=== PATIENT | female | born 1945 | race Caucasian/White ===

== ENCOUNTER 2017-07-02 11:27 | Observation (INO) ==
[2017-07-02] MEDS ORDERED: methylPREDNISolone 125 MG/2 ML VIAL IVP ONE (11:48)
[2017-07-02] MEDS ORDERED: Ipratropium/Albuterol Neb 3 ML IH ONE (11:48)
[2017-07-02] MEDS ORDERED: GuaiFENesin Liq 200 MG/10 ML UDC PO ONE (11:49)
--- NOTE | 2017-07-02 11:57 | Emergency Department Note ---
Disposition Clinical Impression: Bronchopneumonia Disposition: Admitted As Inpatient Condition: Fair SOB HPI - General Chief Complaint: ED Shortness of Breath/Dyspnea Stated Complaint: CORY, cough Time Seen by Provider: 07/02/17 11:39 Source: patient, family Limitations: no limitations Nursing Notes Reviewed: Yes Vital Signs Reviewed: Yes - History of Present Illness Patient with past medical history of hypertension and hyperlipidemia presents for evaluation of cough and generalized weakness present for the last 2 weeks. Patient has been seen by outside providers and provided with Augmentin as well as Levaquin. She has also been given breathing treatments and steroids. Patient states the cough and weakness continued to get worse. Cough is nonproductive.. Patient states she does not have fevers. Nonsmoker. - Related Data Home Medications Medication Instructions Recorded Confirmed Aspirin [Lo-Dose Aspirin EC] 81 mg PO DAILY 07/02/17 07/02/17 Cholecalciferol (D-3) [Vitamin D] 1,000 unit PO DAILY 07/02/17 07/02/17 Lansoprazole [Prevacid] 1 cap PO DAILY 07/02/17 07/02/17 Lisinopril/Hydrochlorothiazide 1 tab PO DAILY 07/02/17 07/02/17 [Zestoretic 20-25 mg Tablet] Multivitamin [One Daily Essential] 1 tab PO DAILY 07/02/17 07/02/17 Allergies Allergy/AdvReac Type Severity Reaction Status Date / Time No Known Allergies Allergy Verified 07/02/17 11:29 Review of Systems: Constitutional: Weakness No fever Vision: No blurred vision ENT: No rhinorrhea Respiratory: Nonproductive cough Allergic: No allergies : No blood in urine GI: No blood in stool Hematologic: No bruising Dermatologic: No skin rash Musculoskeletal: No pain in the extremities Neuro: No numbness of the extremities Past Medical History - Past Medical History Medical history: Reports: GERD, hyperlipidemia, hypertension Psychiatric history: Reports: no psych history - Social History Smoking Status: Never smoker Smokeless Tobacco Status: No Alcohol use: Reports: none Drug use: Reports: none Physical Exam General: Well appearing, nontoxic, no acute distress Head: Normocephalic Atraumatic Eyes: PERRL, EOMI ENT: Airway patent, no stridor Neck: supple, no meningismus Chest: wheezing and rhonchi bilaterally. Cardiac: Regular rate and rhythm, no murmurs, rubs or gallops Abdomen: soft, nontender, nondistended; no guarding, rebound, or tenderness to percussion Musculoskeletal: Calves symmetric, nontender, no palpable cord Skin: No rash, normal skin tone Neuro: Alert and Oriented to person, place, and time; No focal deficit, CN 2-12 symmetric and intact - General Limitations: no limitations General appearance: alert, in no apparent distress Course Course Narrative: Daughter has brought to the attention of Dr. Platt that she is concerned for other safety. Suicidal ideation. Patient states that she would kill herself by stepping out of front of the truck. Secondary to depression. - Reevaluation(s) Reevaluation #1: Patient with mildly elevated creatinine. Elevated white count. Chest x-ray negative. CT ordered. Patient was premedicated prior to CTA. Fluids given. Vital Signs Temperature 97.7 F 07/02/17 11:29 Pulse Rate 107 07/02/17 11:29 Respiratory Rate 22 07/02/17 11:29 Blood Pressure 131/87 07/02/17 11:29 O2 Sat by Pulse Oximetry 96 07/02/17 11:29 Temperature 98.0 F 07/02/17 18:17 Pulse Rate 85 07/02/17 18:17 Respiratory Rate 16 07/02/17 18:17 Blood Pressure 129/75 07/02/17 18:17 O2 Sat by Pulse Oximetry 91 07/02/17 18:17 Oxygen Delivery Oxygen Delivery Room Air Shortness of Breath/Dyspnea - Lab Data Result diagrams: 07/02/17 12:01 07/02/17 12:01 Lab Results 07/02/17 07/02/17 07/02/17 Range/Units 12:01 12:01 12:01 WBC 17.7 H (4.3-11.1) K/mcL RBC 5.29 H (3.82-4.97) M/mcL Hgb 15.6 H (11.5-15.4) g/dL Hct 46.7 H (35.3-44.9) % MCV 88.3 (83.0-100.0) fL MCH 29.5 (28.0-33.3) pg MCHC 33.4 (31.6-35.5) g/dL RDW 12.0 (11.5-14.5) % Plt Count 344 (140-400) K/mcL MPV 11.2 (9.4-12.4) fL Seg Neutrophils % 70.0 % Lymphocytes % 26.0 % Monocytes % 4.0 % Neutrophils # 12.4 H (1.6-8.9) K/mcL Lymphocytes # 4.6 (0.6-4.6) K/mcL Monocytes # 0.7 (0.0-1.3) K/mcL Platelet Estimate Normal (Normal) Sodium (136-145) mEq/L Potassium (3.5-5.1) mEq/L Chloride (98-107) mEq/L Carbon Dioxide (23-29) mEq/L BUN (8-23) mg/dL Creatinine (0.60-1.20) mg/dL Est GFR ( Amer) (> 60) Est GFR (Non-Af Amer) (> 60) BUN/Creatinine Ratio (6-26) Glucose (70-105) mg/dL Calculated Osmolality (280-300) Lactic Acid 2.0 (0.5-2.2) mmol/L Calcium (8.6-10.3) mg/dL Troponin I < 0.03 (< 0.04) ng/mL B-Natriuretic Peptide (Less than 100) pg/mL TSH (0.340-5.600) mcIU/mL Urine Color (Yellow) Urine Clarity (Clear) Urine pH (5.0-8.0) pH Units Ur Specific Adrian (1.010-1.025) Urine Protein (Neg-Trace) mg/dL Urine Glucose (UA) (Normal) mg/dL Urine Ketones (Negative) mg/dL Urine Blood (Negative) Urine Nitrite (Negative) Urine Bilirubin (Negative) Urine Urobilinogen (Normal) mg/dL Ur Leukocyte Esterase (Negative) Ur Culture Indicated? (NO) Salicylates (15.0-30.0) mg/dL Urine Opiates Screen (Zukwkr=027) ng/mL Acetaminophen (10-30) mcg/mL Ur Barbiturates Screen (Lbmowl=597) ng/mL Ur Phencyclidine Scrn (Cutoff=25) ng/mL Ur Amphetamines Screen (Klykwj=9112) ng/mL U Benzodiazepines Scrn (Lijsuj=396) ng/mL Urine Cocaine Screen (Cutoff= 300) ng/mL U Marijuana (THC) Screen (Cutoff = 50) ng/mL Ethyl Alcohol (0-10) mg/dL 07/02/17 07/02/17 07/02/17 Range/Units 12:01 12:01 13:55 WBC (4.3-11.1) K/mcL RBC (3.82-4.97) M/mcL Hgb (11.5-15.4) g/dL Hct (35.3-44.9) % MCV (83.0-100.0) fL MCH (28.0-33.3) pg MCHC (31.6-35.5) g/dL RDW (11.5-14.5) % Plt Count (140-400) K/mcL MPV (9.4-12.4) fL Seg Neutrophils % % Lymphocytes % % Monocytes % % Neutrophils # (1.6-8.9) K/mcL Lymphocytes # (0.6-4.6) K/mcL Monocytes # (0.0-1.3) K/mcL Platelet Estimate (Normal) Sodium 136 (136-145) mEq/L Potassium 3.9 (3.5-5.1) mEq/L Chloride 103 (98-107) mEq/L Carbon Dioxide 22 L (23-29) mEq/L BUN 42 H (8-23) mg/dL Creatinine 1.36 H (0.60-1.20) mg/dL Est GFR ( Amer) 46 L (> 60) Est GFR (Non-Af Amer) 38 L (> 60) BUN/Creatinine Ratio 31 H (6-26) Glucose 92 (70-105) mg/dL Calculated Osmolality 292 (280-300) Lactic Acid (0.5-2.2) mmol/L Calcium 10.5 H (8.6-10.3) mg/dL Troponin I (< 0.04) ng/mL B-Natriuretic Peptide 23 (Less than 100) pg/mL TSH 2.684 (0.340-5.600) mcIU/mL Urine Color Yellow (Yellow) Urine Clarity Clear (Clear) Urine pH 6.0 (5.0-8.0) pH Units Ur Specific Adrian 1.025 (1.010-1.025) Urine Protein Trace (Neg-Trace) mg/dL Urine Glucose (UA) Normal (Normal) mg/dL Urine Ketones Negative (Negative) mg/dL Urine Blood Negative (Negative) Urine Nitrite Negative (Negative) Urine Bilirubin Negative (Negative) Urine Urobilinogen Normal (Normal) mg/dL Ur Leukocyte Esterase Negative (Negative) Ur Culture Indicated? NO (NO) Salicylates < 5.0 L (15.0-30.0) mg/dL Urine Opiates Screen (Tpjtfq=772) ng/mL Acetaminophen < 1.0 L (10-30) mcg/mL Ur Barbiturates Screen (Ybgxmt=573) ng/mL Ur Phencyclidine Scrn (Cutoff=25) ng/mL Ur Amphetamines Screen (Vwllks=2903) ng/mL U Benzodiazepines Scrn (Tiqjtq=642) ng/mL Urine Cocaine Screen (Cutoff= 300) ng/mL U Marijuana (THC) Screen (Cutoff = 50) ng/mL Ethyl Alcohol < 10 (0-10) mg/dL 07/02/17 Range/Units 13:55 WBC (4.3-11.1) K/mcL RBC (3.82-4.97) M/mcL Hgb (11.5-15.4) g/dL Hct (35.3-44.9) % MCV (83.0-100.0) fL MCH (28.0-33.3) pg MCHC (31.6-35.5) g/dL RDW (11.5-14.5) % Plt Count (140-400) K/mcL MPV (9.4-12.4) fL Seg Neutrophils % % Lymphocytes % % Monocytes % % Neutrophils # (1.6-8.9) K/mcL Lymphocytes # (0.6-4.6) K/mcL Monocytes # (0.0-1.3) K/mcL Platelet Estimate (Normal) Sodium (136-145) mEq/L Potassium (3.5-5.1) mEq/L Chloride (98-107) mEq/L Carbon Dioxide (23-29) mEq/L BUN (8-23) mg/dL Creatinine (0.60-1.20) mg/dL Est GFR ( Amer) (> 60) Est GFR (Non-Af Amer) (> 60) BUN/Creatinine Ratio (6-26) Glucose (70-105) mg/dL Calculated Osmolality (280-300) Lactic Acid (0.5-2.2) mmol/L Calcium (8.6-10.3) mg/dL Troponin I (< 0.04) ng/mL B-Natriuretic Peptide (Less than 100) pg/mL TSH (0.340-5.600) mcIU/mL Urine Color (Yellow) Urine Clarity (Clear) Urine pH (5.0-8.0) pH Units Ur Specific Adrian (1.010-1.025) Urine Protein (Neg-Trace) mg/dL Urine Glucose (UA) (Normal) mg/dL Urine Ketones (Negative) mg/dL Urine Blood (Negative) Urine Nitrite (Negative) Urine Bilirubin (Negative) Urine Urobilinogen (Normal) mg/dL Ur Leukocyte Esterase (Negative) Ur Culture Indicated? (NO) Salicylates (15.0-30.0) mg/dL Urine Opiates Screen Negative (Xruebz=105) ng/mL Acetaminophen (10-30) mcg/mL Ur Barbiturates Screen Negative (Ldifvt=777) ng/mL Ur Phencyclidine Scrn Negative (Cutoff=25) ng/mL Ur Amphetamines Screen Negative (Wecxnx=7227) ng/mL U Benzodiazepines Scrn Negative (Fcsiai=795) ng/mL Urine Cocaine Screen Negative (Cutoff= 300) ng/mL U Marijuana (THC) Screen Negative (Cutoff = 50) ng/mL Ethyl Alcohol (0-10) mg/dL Attestation Statement - Attestation Attestation: I examined this patient and my medical decision-making was reviewed with the Resident Physician. I agree with the documented findings, disposition and treatment plan as described except to the extent set forth below. Findings consistent with ongoing cough and congestion. Concern for bronchial pneumonia. Patient was started on antibiotics and we admitted the hospital for further evaluation. Patient also has complaints of subtle suicidal ideations. Consult for behavioral place.
[2017-07-02 12:11] LABS: Hematocrit 46.7 % (35.3-44.9); Hemoglobin 15.6 g/dL (11.5-15.4); Mean Corpuscular HGB Conc 33.4 g/dL (31.6-35.5); Mean Corpuscular Hemoglobin 29.5 pg (28.0-33.3); Mean Corpuscular Volume 88.3 fL (83.0-100.0); Mean Platelet Volume 11.2 fL (9.4-12.4); Platelet Count 344 K/mcL (140-400); Red Blood Count 5.29 M/mcL (3.82-4.97)
[2017-07-02 12:25] LABS: Lymphocytes # 4.6 K/mcL (0.6-4.6); Monocytes # 0.7 K/mcL (0.0-1.3); Neutrophils # 12.4 K/mcL (1.6-8.9)
[2017-07-02 12:26] LABS: Platelet Estimate Normal (Normal)
[2017-07-02 12:55] LABS: Acetaminophen < 1.0 mcg/mL (10-30); Ethanol < 10 mg/dL (0-10); Salicylate < 5.0 mg/dL (15.0-30.0)
[2017-07-02 12:58] LABS: BUN/Creatinine Ratio 31 (6-26); Blood Urea Nitrogen 42 mg/dL (8-23); Calcium 10.5 mg/dL (8.6-10.3); Carbon Dioxide 22 mEq/L (23-29); Chloride 103 mEq/L (98-107); Glucose 92 mg/dL (70-105); Osmolality,Calculated 292 (280-300); Potassium 3.9 mEq/L (3.5-5.1); Sodium 136 mEq/L (136-145); eGFR For African Americans 46 (> 60); eGFR For Non-African Americans 38 (> 60)
[2017-07-02] MEDS ORDERED: 0.9 % Sodium Chloride 1,000 ML IVC ONE (13:06)
[2017-07-02 14:06] LABS: Bilirubin,Urine Negative (Negative); Blood,Urine Negative (Negative); Clarity,Urine Clear (Clear); Color,Urine Yellow (Yellow); Glucose,Urine (UA) Normal (Normal); Ketones,Urine Negative (Negative); Leukocyte Esterase,Urine Negative (Negative); Nitrite,Urine Negative (Negative); Protein,Urine Trace mg/dL (Neg-Trace); Specific Gravity,Urine 1.025 (1.010-1.025); Urobilinogen,Urine Normal (Normal)
[2017-07-02 14:12] LABS: Amphetamine Screen,Urine Negative ng/mL (Cutoff=1000); Barbiturate Screen,Urine Negative ng/mL (Cutoff=200); Benzodiazepines Screen,Urine Negative ng/mL (Cutoff=200); Cannabinoid Screen,Urine Negative ng/mL (Cutoff = 50); Cocaine Screen,Urine Negative ng/mL (Cutoff= 300); Opiate Screen,Urine Negative ng/mL (Cutoff=300); Phencyclidine Screen,Urine Negative ng/mL (Cutoff=25)
[2017-07-02 14:38] LABS: Thyroid Stimulating Hormone 2.684 mcIU/mL (0.340-5.600)
[2017-07-02] MEDS ORDERED: Piperacillin/Tazobactam 3.375 GM in D5% in Water (Mini-Bag+) 100 ML IVPB ONE (16:34)
[2017-07-02] MEDS ORDERED: Piperacillin/Tazobactam 3.375 GM in Water for inj. (sterile) 20 ML 20 ML IVP ONE (17:30)
--- NOTE | 2017-07-02 18:39 | Electrocardiograph Report ---
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
[2017-07-02] MEDS ORDERED: Naloxone 0.4 MG/ML INJ IVP PRN (19:31)
[2017-07-02] MEDS ORDERED: Ondansetron ODT 4 MG TAB.RAPDIS SL PRN (19:31)
[2017-07-02] MEDS ORDERED: Acetaminophen 325 MG TABLET PO PRN (19:31)
[2017-07-02] MEDS ORDERED: Ipratropium/Albuterol Neb 3 ML IH PRN (20:14)
[2017-07-02] MEDS ORDERED: 0.9 % Sodium Chloride 1,000 ML IVC SCH (20:15)
--- NOTE | 2017-07-02 20:19 | Internal Med History&Physical ---
<Polo Dos Santos - Last Filed: 07/02/17 20:47> Date of Encounter: 07/02/17 Time of Encounter: 20:00 Assessment and Plan (1) CAP (community acquired pneumonia) Current visit: Yes Status: Suspected Suspected subclinical CAP. CXR negative for acute process, CT shows bronchitis, possible chronic granulomatous disease. UA negative. Leukocytosis may be part infectious but difficult to determine in setting of recent outpatient steroid PO/IM use. Will treat with Rocephen/Azithromycin. Q6 BETH duoneb with Q4 PRN as well, antitussive for non-productive cough suppression. 1 episode diarrhea this AM, likely from past abx use, will monitor for now, hold off on C. diff workup. Qualifiers: Laterality: unspecified laterality Qualified Code(s): J18.9 - Pneumonia, unspecified organism (2) Acute kidney injury Current visit: Yes Status: Acute Baseline .9-1.0; currently 1.36 creatinine. Start on gentle hydration with 60mL/hr normal saline. (3) Leukocytosis Current visit: Yes Status: Acute WBC 17.7 in setting of recent steroid use. Pt afebrile, vitals stable, SPO2 was low-mid 90s room air. Treating for possible CAP as described above. Qualifiers: Leukocytosis type: unspecified Qualified Code(s): D72.829 - Elevated white blood cell count, unspecified (4) HTN (hypertension) Current visit: Yes Status: Acute Continue lisinopril. Normotensive. Qualifiers: Hypertension type: essential hypertension Qualified Code(s): I10 - Essential (primary) hypertension (5) HLD (hyperlipidemia) Current visit: Yes Status: Acute Reported HLD; not on statin. No history MD/CAD. Qualifiers: Hyperlipidemia type: unspecified Qualified Code(s): E78.5 - Hyperlipidemia , unspecified (6) DVT prophylaxis Current visit: Yes Status: Acute SQ heparin. Internal Medicine - H&P: HPI Admitted From: Emergency Dept Plans for Post Hospital Care: Home History of present illness: Ms. Heart is a 72 year old female with PMH HTN, HLD, non-smoker, no hx CAD who presents to ED for 2 weeks of cough and weakness. Pt received complete course of Augmentin last week at an urgent care as well as has been on Levaquin for 3 days, and received po and IM steroid x2 in past week. Pt states symptoms were not resolving so went to [facility]. ED provided nebulizer treatment, CXR shows no acute cardiopulm findings, ECG showed sinus tachycardia without ST changes, CT chest showed bronchitis with possible chronic granulomatous disease. ED note reports +suicidal ideation. Currently patient states she feels a lot better, continues to have hacking cough , feels able to breath well, + 1 episode of light diarrhea, non-watery this morning. Denies thoughts of harm to self or others. Denies n/v, neck pain, blurred vision, chest discomfort, or abdominal pain. Past Med Surg Social Fam HX - Past Medical History Medical history: GERD, hyperlipidemia, hypertension Psychiatric history: no psych history - Past Surgical History Surgical History: hysterectomy - Social History Smoking Status: Never smoker Smokeless Tobacco Status: No Alcohol use: none Drug use: none - Family History Mother Hx Family Cancer: Yes Internal Medicine - H&P: Meds Aspirin [Lo-Dose Aspirin EC] 81 mg PO DAILY 07/02/17 [History] Cholecalciferol (D-3) [Vitamin D] 1,000 unit PO DAILY 07/02/17 [History] Lansoprazole [Prevacid] 1 cap PO DAILY 07/02/17 [History] Lisinopril/Hydrochlorothiazide [Zestoretic 20-25 mg Tablet] 1 tab PO DAILY 07/02 [History] Multivitamin [One Daily Essential] 1 tab PO DAILY 07/02/17 [History] 3 Allergy/AdvReac Type Severity Reaction Status Date / Time No Known Allergies Allergy Verified 07/02/17 11:29 All Systems PM: A 10-system review of systems was performed and is negative for pertinent findings except as documented above in the HPI. - Constitutional Vitals: Temp Pulse Resp BP Pulse Ox 98.0 F 85 16 129/75 91 07/02/17 18:17 07/02/17 18:17 07/02/17 18:17 07/02/17 18:17 07/02/17 18:17 General appearance: Present: A&O X 3, pleasant, no acute distress, answers questions appropriately - Head Head exam: Present: atraumatic - ENT ENT exam: Present: mucous membranes moist - Neck Neck exam general surgery: Present: full ROM. Absent: lymphadenopathy - Respiratory Respiratory exam: Present: CTAB. Absent: chest wall tenderness, decreased breath sounds Additional comments: non-productive cough intermittently through encounter/exam - Cardiovascular Cardiovascular exam: Present: RRR, +S1, +S2. Absent: JVD - Extremities Exam Extremities exam: Absent: calf tenderness, pedal edema - Neurological Exam Neurological exam: Present: no focal deficits. Absent: facial droop, speech deficit Internal Med - H&P Results - Labs CBC & Chem 7: 07/02/17 12:01 07/02/17 12:01 <Elisabeth Maira - Last Filed: 07/02/17 22:09> Date of Encounter: 07/02/17 Internal Medicine - H&P: HPI History of present illness: Ms. Heart is a 72 year old female All Systems PM: A 10-system review of systems was performed and is negative for pertinent findings except as documented above in the HPI. - Constitutional Vitals: Temp Pulse Resp BP Pulse Ox 98.0 F 85 16 129/75 91 07/02/17 18:17 07/02/17 18:17 07/02/17 18:17 07/02/17 18:17 07/02/17 18:17 Internal Med - H&P Results - Labs CBC & Chem 7: 07/02/17 12:01 07/02/17 12:01 - Attending Attestation I have seen and examined this pt independently. I have discussed with Resident physician Dr Dos Santos regarding the management plan. Agree with the documentation. Pt has cough for two weeks, failed outpatient po abx treatment. CTA shows bronchitis, will consider early stage CAP or acute bronchitis. Treat pt with abx ans bronchodialator.
[2017-07-02] MEDS: cefTRIAXone 1,000 MG in Water for inj. (sterile) 20 ML 20 ML IVPB SCH (21:13)
[2017-07-02] MEDS: Azithromycin 500 MG in D5% in Water 250 ML IVPB SCH (21:15)
[2017-07-02] MEDS: Aspirin Enteric Coated 81 MG Tablet PO SCH (21:15)
[2017-07-02] MEDS: Cholecalciferol (D-3) 1,000 UNIT TABLET PO SCH (21:16)
[2017-07-02] MEDS: Multivit/Ca/Min/Fe/FA 1 TAB TABLET PO SCH (21:16)
[2017-07-02] MEDS: *HR* Heparin 5,000 UNIT/ML VIAL SQ SCH (21:19)
[2017-07-02] MEDS: Ipratropium/Albuterol Neb 3 ML IH SCH (22:45)
[2017-07-03] MEDS: Ipratropium/Albuterol Neb 3 ML IH SCH ×4 (03:28→22:11)
[2017-07-03] MEDS: *HR* Heparin 5,000 UNIT/ML VIAL SQ SCH ×3 (04:48→21:13)
[2017-07-03 05:39] LABS: Calcium 9.6 mg/dL (8.6-10.3); Potassium 4.2 mEq/L (3.5-5.1)
[2017-07-03 06:05] LABS: Basophils # 0.1 K/mcL (0.0-0.2); Basophils % 0.5 %; Hematocrit 42.5 % (35.3-44.9); Immature Granulocytes % 2.4 % (0-4); Lymphocytes % 5.1 %; Mean Corpuscular HGB Conc 32.9 g/dL (31.6-35.5); Mean Corpuscular Hemoglobin 29.7 pg (28.0-33.3); Mean Corpuscular Volume 90.2 fL (83.0-100.0); Mean Platelet Volume 11.8 fL (9.4-12.4); Monocytes # 1.1 K/mcL (0.0-1.3); Monocytes % 5.4 %; Neutrophils # 17.2 K/mcL (1.6-8.9); Platelet Count 315 K/mcL (140-400); Red Blood Count 4.71 M/mcL (3.82-4.97); Red Cell Distribution Width 12.2 % (11.5-14.5); Segmented Neutrophils % 86.6 %
--- NOTE | 2017-07-03 09:00 | Internal Med Progress Note ---
Date of Encounter: 07/03/17 Time of Encounter: 08:20 - Assessment and plan (1) CAP (community acquired pneumonia) Current Visit: Yes Status: Suspected Assessment and plan: Pt reports 2 week history of cough and weakness. She is a non-smoker. She has been treated outpatient with IM and PO steroids, as well as a course of Augmentin and Levaquin for 3 days. Pt presented to ED since she was not getting better. CXR is negative. Chest CTA shows bibasilar bronchiolitis and evidence of chronic granulomatous disease. Lungs are diminished throughout all marinelli. She is not requiring supplemental 02. She is afebrile and not tachycardic or hypotensive. Pt received 1 dose of Zoxyin the the ER. Blood cultures are received and pending, sputum culture is ordered. Continue IV Zithromax and Rocephin Continue Duonebs scheduled and PRN Continue Guaifenesin every 6 hours. Qualifiers: Laterality: unspecified laterality Qualified Code(s): J18.9 - Pneumonia, unspecified organism (2) Leukocytosis Current Visit: Yes Status: Acute Assessment and plan: Leukocytosis increased overnight, most likely to dose of steroids that she received in the ER, as well as being treated with steroids IM and po outpatient. . Pt is afebrile and has no tachycardia and is normotensive. Lactic pending. Continue to monitor labs, vitals, and pt condition. Qualifiers: Leukocytosis type: unspecified Qualified Code(s): D72.829 - Elevated white blood cell count, unspecified (3) Acute kidney injury Current Visit: Yes Status: Acute Assessment and plan: Mild DIPESH. Sr Cr has returned to WNL. GFR is at pt's baseline. Avoid nephrotoxins (4) HTN (hypertension) Current Visit: Yes Status: Chronic Assessment and plan: Well controlled. Continue home medications. Qualifiers: Hypertension type: essential hypertension Qualified Code(s): I10 - Essential (primary) hypertension (5) HLD (hyperlipidemia) Current Visit: Yes Status: Chronic Assessment and plan: Chronic. Continue home medications. Qualifiers: Hyperlipidemia type: unspecified Qualified Code(s): E78.5 - Hyperlipidemia , unspecified (6) DVT prophylaxis Current Visit: Yes Status: Acute Assessment and plan: Heparin SQ. Pt is up to bathroom and chair. - Time Spent With Patient less than 15 minutes - Subjective Interval history: Pt was seen and assessed at 0820. Pt states that she feels much better, but understands that she should stay for continued treatment. She is not requiring supplemental 02, lungs are diminished throughout. She denies headache, n/v/d, abd pain, chest pain or SOB. We will continue current treatment and reassess tomorrow. - Constitutional Vitals: Temp Pulse Resp BP Pulse Ox 97.7 F 77 16 118/72 92 07/03/17 06:59 07/03/17 06:59 07/03/17 06:59 07/03/17 06:59 07/03/17 06:59 General appearance: Present: A&O X 3, pleasant, no acute distress, answers questions appropriately - Head Head exam: Present: atraumatic, normal inspection, normocephalic - Eye Eye exam: Present: normal appearance, conjuntiva pink, sclera anicteric - Neck Neck exam general surgery: Present: supple, trachea midline. Absent: lymphadenopathy, tenderness - Respiratory Respiratory exam: Present: decreased breath sounds, CTAB. Absent: accessory muscle use, chest wall tenderness, rales, respiratory distress, rhonchi, wheezes - Cardiovascular Cardiovascular exam: Present: RRR, +S1, +S2. Absent: diastolic murmur, gallop, rubs, systolic murmur - GI/Abdominal GI/Abdominal exam: Present: diminished bowel sounds, normal bowel sounds, soft. Absent: distended, hepatomegaly, tenderness - Extremities Exam Extremities exam: Present: normal capillary refill, normal inspection, warm, radial pulses palpable and symmetrical. Absent: calf tenderness, cyanotic, pedal edema, tenderness - Neurological Exam Neurological exam: Present: alert, oriented X3, no focal deficits. Absent: altered, facial droop, speech deficit - Skin Skin exam: Present: dry, intact, normal color, warm. Absent: rash Internal Medicine: Result - Labs CBC & Chem 7: 07/03/17 03:51 07/03/17 03:51 Labs: Short CBC 07/03/17 Range/Units 03:51 WBC 19.8 H (4.3-11.1) K/mcL Hgb 14.0 D (11.5-15.4) g/dL Hct 42.5 (35.3-44.9) % Plt Count 315 (140-400) K/mcL Neutrophils # 17.2 H (1.6-8.9) K/mcL BMP 07/03/17 03:51 Sodium 138 Potassium 4.2 Chloride 105 Carbon Dioxide 23 BUN 37 H Creatinine 1.16 Glucose 102 Calcium 9.6 Consult Discharge Plan - Plan Referrals: Cherry Farmer DO [Primary Care Provider] -
[2017-07-03] MEDS: Aspirin Enteric Coated 81 MG Tablet PO SCH (09:34)
[2017-07-03] MEDS: Cholecalciferol (D-3) 1,000 UNIT TABLET PO SCH (09:34)
[2017-07-03] MEDS: Lactobacillus 1 EACH CAP.SPRINK PO SCH (09:34)
[2017-07-03] MEDS: Multivit/Ca/Min/Fe/FA 1 TAB TABLET PO SCH (09:35)
[2017-07-03] MEDS: cefTRIAXone 1,000 MG in Water for inj. (sterile) 20 ML 20 ML IVPB SCH (21:12)
[2017-07-03] MEDS: Azithromycin 500 MG in D5% in Water 250 ML IVPB SCH ×2 (21:13→23:45)
[2017-07-03] MEDS ORDERED: Azithromycin 250 MG TABLET PO SCH (23:45)
[2017-07-04] MEDS: *HR* Heparin 5,000 UNIT/ML VIAL SQ SCH (02:19)
[2017-07-04] MEDS: Ipratropium/Albuterol Neb 3 ML IH SCH ×2 (04:26→10:40)
[2017-07-04 06:39] LABS: BUN/Creatinine Ratio 31 (6-26); Blood Urea Nitrogen 33 mg/dL (8-23); Calcium 9.4 mg/dL (8.6-10.3); Carbon Dioxide 25 mEq/L (23-29); Chloride 107 mEq/L (98-107); Glucose 87 mg/dL (70-105); Osmolality,Calculated 295 (280-300); Potassium 4.1 mEq/L (3.5-5.1); Sodium 139 mEq/L (136-145); eGFR For African Americans > 60 (> 60); eGFR For Non-African Americans 50 (> 60)
[2017-07-04 06:56] LABS: Basophils # 0.1 K/mcL (0.0-0.2); Basophils % 0.4 %; Eosinophils # 0.1 K/mcL (0.0-0.6); Eosinophils % 0.9 %; Hematocrit 39.6 % (35.3-44.9); Hemoglobin 13.3 g/dL (11.5-15.4); Immature Granulocytes % 1.6 % (0-4); Lymphocytes % 25.9 %; Mean Corpuscular HGB Conc 33.6 g/dL (31.6-35.5); Mean Corpuscular Volume 89.2 fL (83.0-100.0); Mean Platelet Volume 11.5 fL (9.4-12.4); Monocytes # 0.8 K/mcL (0.0-1.3); Monocytes % 5.2 %; Neutrophils # 10.1 K/mcL (1.6-8.9); Platelet Count 229 K/mcL (140-400); Red Blood Count 4.44 M/mcL (3.82-4.97); Red Cell Distribution Width 12.3 % (11.5-14.5)
[2017-07-04] MEDS: Aspirin Enteric Coated 81 MG Tablet PO SCH (07:50)
[2017-07-04] MEDS: Multivit/Ca/Min/Fe/FA 1 TAB TABLET PO SCH (07:50)
[2017-07-04] MEDS: Lactobacillus 1 EACH CAP.SPRINK PO SCH (07:50)
[2017-07-04] MEDS: Cholecalciferol (D-3) 1,000 UNIT TABLET PO SCH (08:22)
[2017-07-04 11:01] VITALS: BP 149/76
--- NOTE | 2017-07-04 11:05 | Discharge Summary ---
Date of Encounter: 07/04/17 Time of Encounter: 10:35 - Discharge Diagnosis (1) CAP (community acquired pneumonia) Priority: Primary Status: Suspected Comments: Pt reports 2 week history of cough and weakness. She is a non-smoker. She has been treated outpatient with IM and PO steroids, as well as a course of Augmentin and Levaquin for 3 days. Pt presented to ED since she was not getting better. CXR is negative. Chest CTA shows bibasilar bronchiolitis and evidence of chronic granulomatous disease. Lungs are diminished and clear throughout all marinelli. She is not requiring supplemental 02. She is afebrile and not tachycardic or hypotensive. Pt received 1 dose of Zosyn the the ER. Blood cultures are negative, sputum culture was ordered. Leukocytosis is improving, most likely due to recent steroid use. Pt states that she feels significantly better and wants to go home for [place] with her family. Pt will be discharged with antibiotics, antitussive. Qualifiers: Laterality: unspecified laterality Qualified Code(s): J18.9 - Pneumonia, unspecified organism (2) Leukocytosis Priority: Secondary Status: Acute Comments: Resolving. Pt has been on IM and po steroids recently. No tachycardia, fever, hypotension. Pt will go home on antibiotics and is improving. Qualifiers: Leukocytosis type: unspecified Qualified Code(s): D72.829 - Elevated white blood cell count, unspecified (3) Acute kidney injury Priority: Secondary Status: Acute Comments: SR Cr WNL, GFR continues to improve. Avoid nephrotoxins and f/u with PCP. (4) HTN (hypertension) Priority: Secondary Status: Chronic Comments: Well controlled. Continue home medications. Qualifiers: Hypertension type: essential hypertension Qualified Code(s): I10 - Essential (primary) hypertension (5) HLD (hyperlipidemia) Priority: Secondary Status: Chronic Comments: Chronic. Continue medications at home. Qualifiers: Hyperlipidemia type: unspecified Qualified Code(s): E78.5 - Hyperlipidemia , unspecified (6) DVT prophylaxis Priority: Secondary Status: Acute Comments: Heparin SQ - Discharge Medications Prescriptions: Azithromycin [Zithromax] 500 mg PO Q24H #8 tablet Benzonatate [Tessalon] 100 mg PO TID PRN #30 capsule PRN Reason: Cough Home Medications: Aspirin [Lo-Dose Aspirin EC] 81 mg PO DAILY 07/02/17 [History] Cholecalciferol (D-3) [Vitamin D] 1,000 unit PO DAILY 07/02/17 [History] Lansoprazole [Prevacid] 1 cap PO DAILY 07/02/17 [History] Lisinopril/Hydrochlorothiazide [Zestoretic 20-25 mg Tablet] 1 tab PO DAILY 07/02 [History] Multivitamin [One Daily Essential] 1 tab PO DAILY 07/02/17 [History] Azithromycin [Zithromax] 500 mg PO Q24H #8 tablet 07/04/17 [Rx] Benzonatate [Tessalon] 100 mg PO TID PRN #30 capsule 07/04/17 [Rx] Allergies/Adverse Reactions: 3 Allergy/AdvReac Type Severity Reaction Status Date / Time IVP Dye AdvReac Rash Uncoded 07/03/17 11:32 Date of admission: 07/02/17 17:02 Primary care physician: Brendon Devries Discharging clinician: Aury Gonzalez Anticipated date of discharge: 07/04/17 - Patient Status Disposition: Home, Self-Care Condition: Good Functional capacity at discharge: independent ambulation Overall status at discharge: patient is progressing back to baseline - Discharge Instructions Follow Up With: Cherry Farmer DO [Primary Care Provider] - Additional Instructions: Please follow up with your PCP in the next week for a recheck. REturn to the ER immediately if your symptoms return or worsen. Return to your normal activities as tolerated, slowly. Resume your normal diet as tolerated. Take your new medications as directed. Make sure that you take your antibiotic as directed and take it until they are gone. - Diet and Activity Activity: increase activity as tolerated Diet: advance to your usual diet Hospital course: Ms. Heart is a 72 year old female with pmh of HTN, GERD, HLD who presented to the ED with c/o continued cough and weakness that did not improve after 2 antibiotics and steroids. Pt was treated with Zithromax IV here for CAP and states that she feels better. Pt had mild DIPESH that improved, mild leukocytosis that is improving. White count most likely due to recent steroid use, she has no tachycardia, no fever, is normotensive. Pt did not require 02 or repeat steroids here. Pt is anxious to get home for [place] with her family. Pt is stable and appropriate for discharge. - Time Spent with Patient Total time spent providing and/or coordinating discharge services: Less than 30 minutes - Constitutional Vitals: Temp Pulse Resp BP Pulse Ox 97.8 F 98 16 149/87 96 07/04/17 07:00 07/04/17 07:00 07/04/17 07:00 07/04/17 07:00 07/04/17 07:00 General appearance: Present: A&O X 3, pleasant, no acute distress, answers questions appropriately - Head Head exam: Present: atraumatic, normal inspection, normocephalic - Eye Eye exam: Present: normal appearance, conjuntiva pink, sclera anicteric - Neck Neck exam general surgery: Present: supple, trachea midline. Absent: lymphadenopathy - Respiratory Respiratory exam: Present: decreased breath sounds, CTAB. Absent: accessory muscle use, rales, respiratory distress, rhonchi, wheezes - Cardiovascular Cardiovascular exam: Present: RRR, +S1, +S2. Absent: diastolic murmur, gallop, rubs, systolic murmur - GI/Abdominal GI/Abdominal exam: Present: normal bowel sounds, soft. Absent: distended, hepatomegaly, tenderness - Extremities Exam Extremities exam: Present: normal capillary refill, warm, radial pulses palpable and symmetrical. Absent: calf tenderness, cyanotic, pedal edema - Neurological Exam Neurological exam: Present: alert, oriented X3, no focal deficits. Absent: facial droop, speech deficit - Skin Skin exam: Present: dry, intact, normal color, warm. Absent: rash
== END 2017-07-04 12:00 | disposition home or self-care (01) ==
LOC: 3BNU 11:27 → EMEROO 11:27 → 3BNU 18:14
PROVIDERS: ADMIT Internal Medicine; ATTEND Registered Nurse

== ENCOUNTER 2020-12-03 20:31 | Observation (INO) ==
[2020-12-03] MEDS ORDERED: 0.9 % Sodium Chloride 1,000 ML IVC ONE (21:04)
[2020-12-03 21:34] LABS: Eosinophils % 0.1 %; Red Cell Distribution Width 11.9 % (11.5-14.5)
[2020-12-03 21:37] LABS: Basophils # 0.1 K/mcL (0.0-0.2); Basophils % 0.2 %; Hematocrit 36.4 % (35.3-44.9); Hemoglobin 11.8 g/dL (11.5-15.4); Lymphocytes # 0.7 K/mcL (0.6-4.6); Lymphocytes % 2.3 %; Mean Corpuscular HGB Conc 32.4 g/dL (31.6-35.5); Mean Corpuscular Hemoglobin 29.4 pg (28.0-33.3); Mean Corpuscular Volume 90.5 fL (83.0-100.0); Mean Platelet Volume 10.2 fL (9.4-12.4); Monocytes % 5.7 %; Neutrophils # 27.8 K/mcL (1.6-8.9); Platelet Count 305 K/mcL (140-400); Red Blood Count 4.02 M/mcL (3.82-4.97); Segmented Neutrophils % 90.7 %
[2020-12-03 21:40] LABS: INR 1.4; Prothrombin Time 16.1 Seconds (9.4-12.1)
[2020-12-03 21:42] LABS: Activated Partial Thrombo Time 26.4 Seconds (26.0-36.0); Monocytes # 1.7 K/mcL (0.0-1.3)
[2020-12-03 21:45] LABS: White Blood Count 30.6 K/mcL (4.3-11.1)
[2020-12-03 22:06] LABS: Albumin 3.2 g/dL (3.5-5.7); Albumin/Globulin Ratio 0.9 (1.1-2.2); Bilirubin,Direct 0.2 mg/dL (0.0-0.2); Bilirubin,Indirect 0.6 mg/dL (0.0-1.0); Bilirubin,Total 0.8 mg/dL (0.3-1.0); Globulin 3.4 g/dL (2.4-3.5); Magnesium 1.3 mg/dL (1.6-2.6); Phosphorous 2.3 mg/dL (2.7-4.5); Potassium 4.3 mEq/L (3.5-5.1); Total Protein 6.6 g/dL (6.4-8.9); Troponin I 0.04 ng/mL (< 0.04)
[2020-12-03] MEDS ORDERED: cefTRIAXone 1,000 MG in Water for inj. (sterile) 10 ML IVP ONE (22:14)
[2020-12-03] MEDS ORDERED: cefTRIAXone 1,000 MG in 0.9 % Sodium Chloride Mini Bag 100 ML IVPB ONE (22:14)
[2020-12-03] MEDS ORDERED: Azithromycin 500 MG in 0.9 % Sodium Chloride 250 ML IVPB ONE (22:14)
[2020-12-03 22:15] LABS: Platelet Estimate Normal (Normal)
[2020-12-03] MEDS ORDERED: Water for inj. (sterile) 10 ML ONE (22:37)
[2020-12-03 23:19] LABS: Bacteria,Urine Few per hpf (None-Few); Bilirubin,Urine Negative (Negative); Blood,Urine Negative (Negative); Clarity,Urine Turbid (Clear); Color,Urine Yellow (Yellow); Glucose,Urine (UA) Normal (Normal); Ketones,Urine Negative (Negative); Leukocyte Esterase,Urine Large (Negative); Mucus,Urine Few per lpf (None-Few); Nitrite,Urine Negative (Negative); Protein,Urine 50 mg/dL (Neg-Trace); Specific Gravity,Urine 1.023 (1.010-1.025); Squamous Epithelial Cell,Urine Moderate per hpf (None-Few); WBC,Urine 50-100 per hpf (0-3)
[2020-12-04] MEDS ORDERED: Ondansetron 4 MG/2 ML VIAL IVP PRN (00:10)
[2020-12-04] MEDS ORDERED: Acetaminophen 325 MG TABLET PO PRN (00:10)
[2020-12-04] MEDS ORDERED: Naloxone 0.4 MG/ML INJ IVP PRN (00:10)
[2020-12-04] MEDS ORDERED: Ipratropium/Albuterol Neb 3 ML IH PRN (00:12)
[2020-12-04] MEDS: 0.9 % Sodium Chloride 1,000 ML IVC SCH ×2 (00:55→10:23)
[2020-12-04 01:35] LABS: Magnesium 1.3 mg/dL (1.6-2.6); Potassium 4.2 mEq/L (3.5-5.1)
[2020-12-04 01:50] LABS: Adenovirus Not Detected (Not Detect); Bordetella Pertussis Not Detected (Not Detect); Chlamydophila pneumoniae Not Detected (Not Detect); Coronavirus 229E Not Detected (Not Detect); Coronavirus HKU1 Not Detected (Not Detect); Coronavirus NL63 Not Detected (Not Detect); Coronavirus OC43 Not Detected (Not Detect); Human Metapneumovirus Not Detected (Not Detect); Human Rhinovirus/Enterovirus Not Detected (Not Detect); Influenza A Subtype 2009 H1 Not Detected (Not Detect); Influenza B Not Detected (Not Detect); Mycoplasma pneumoniae Not Detected (Not Detect); Parainfluenza Virus 1 Not Detected (Not Detect); Parainfluenza Virus 2 Not Detected (Not Detect); Parainfluenza Virus 3 Not Detected (Not Detect); Parainfluenza Virus 4 Not Detected (Not Detect); Respiratory Syncytial Virus Not Detected (Not Detect); SARS-CoV-2 Not Detected (Not Detect)
[2020-12-04] MEDS ORDERED: Perflutren Lipid Microsphere 1.3 ML in 0.9 % Sodium Chloride 8.7 ML IVP PRN (03:39)
[2020-12-04] MEDS: *HR* Heparin 5,000 UNIT/ML VIAL SQ SCH ×2 (05:07→17:00)
[2020-12-04 06:13] LABS: Basophils % 0.2 %; Eosinophils % 0.2 %; Hematocrit 34.4 % (35.3-44.9); Immature Granulocytes % 0.8 % (0-4); Lymphocytes # 0.5 K/mcL (0.6-4.6); Lymphocytes % 2.6 %; Mean Corpuscular Hemoglobin 29.3 pg (28.0-33.3); Mean Corpuscular Volume 91.7 fL (83.0-100.0); Mean Platelet Volume 10.4 fL (9.4-12.4); Monocytes # 1.1 K/mcL (0.0-1.3); Monocytes % 5.3 %; Neutrophils # 18.2 K/mcL (1.6-8.9); Platelet Count 235 K/mcL (140-400); Red Blood Count 3.75 M/mcL (3.82-4.97); Red Cell Distribution Width 11.9 % (11.5-14.5); Segmented Neutrophils % 90.9 %
[2020-12-04 06:19] LABS: INR 1.4
[2020-12-04] MEDS: Azithromycin 500 MG in 0.9 % Sodium Chloride 250 ML IVPB SCH (07:36)
[2020-12-04] MEDS: cefTRIAXone 1,000 MG in 0.9 % Sodium Chloride Mini Bag 100 ML IVPB SCH (07:37)
[2020-12-04] MEDS ORDERED: cloNIDine HCL 0.1 MG TABLET PO PRN (08:49)
[2020-12-04] MEDS ORDERED: Magnesium Oxide 400 MG TABLET PO SCH (09:00)
[2020-12-04] MEDS: Cholecalciferol (D-3) 1,000 UNIT (25MCG) TABLET PO SCH (09:16)
[2020-12-04] MEDS: DilTIAZem CD (24hr) 240 MG CAP.ER.24H PO SCH (09:17)
[2020-12-04] MEDS: Sodium Bicarbonate 75 MEQ in 0.45 % Sodium Chloride 1,000 ML IVC SCH (13:51)
[2020-12-04] MEDS ORDERED: lisinopriL 20 MG TABLET PO SCH (20:15)
[2020-12-04] MEDS ORDERED: cloNIDine HCL 0.1 MG TABLET PO SCH (21:00)
[2020-12-05] MEDS: Sodium Bicarbonate 75 MEQ in 0.45 % Sodium Chloride 1,000 ML IVC SCH (03:41)
[2020-12-05] MEDS: *HR* Heparin 5,000 UNIT/ML VIAL SQ SCH (03:41)
[2020-12-05 05:44] LABS: Basophils # 0.1 K/mcL (0.0-0.2); Basophils % 0.6 %; Eosinophils # 0.1 K/mcL (0.0-0.6); Eosinophils % 0.9 %; Hematocrit 34.8 % (35.3-44.9); Hemoglobin 11.3 g/dL (11.5-15.4); Immature Granulocytes % 1.2 % (0-4); Lymphocytes # 0.8 K/mcL (0.6-4.6); Lymphocytes % 8.2 %; Mean Corpuscular HGB Conc 32.5 g/dL (31.6-35.5); Mean Corpuscular Hemoglobin 29.4 pg (28.0-33.3); Mean Corpuscular Volume 90.4 fL (83.0-100.0); Mean Platelet Volume 10.6 fL (9.4-12.4); Monocytes # 0.7 K/mcL (0.0-1.3); Monocytes % 7.2 %; Neutrophils # 8.1 K/mcL (1.6-8.9); Platelet Count 263 K/mcL (140-400); Red Blood Count 3.85 M/mcL (3.82-4.97); Red Cell Distribution Width 11.8 % (11.5-14.5); Segmented Neutrophils % 81.9 %
[2020-12-05 05:47] LABS: White Blood Count 9.9 K/mcL (4.3-11.1)
[2020-12-05 06:08] LABS: % Iron Saturation 10 % (15-50); BUN/Creatinine Ratio 19 (6-26); Blood Urea Nitrogen 19 mg/dL (8-23); Calcium 9.7 mg/dL (8.6-10.3); Carbon Dioxide 23 mEq/L (23-29); Chloride 103 mEq/L (98-107); Glucose 84 mg/dL (70-105); Iron 20 mcg/dL (50-170); Magnesium 1.6 mg/dL (1.6-2.6); Osmolality,Calculated 283 (280-300); Phosphorous 2.5 mg/dL (2.7-4.5); Potassium 3.7 mEq/L (3.5-5.1); Sodium 136 mEq/L (136-145); Transferrin 144 mg/dL (203-362); eGFR For African Americans > 60 (> 60); eGFR For Non-African Americans 53 (> 60)
[2020-12-05 06:16] LABS: Thyroid Stimulating Hormone 1.174 mcIU/mL (0.340-5.600)
[2020-12-05 06:22] LABS: Ferritin 355 ng/mL (10-120)
[2020-12-05 06:25] LABS: Folate 17.2 ng/mL (3.0-16.0)
[2020-12-05 07:27] VITALS: BP 139/73
[2020-12-05] MEDS: Cholecalciferol (D-3) 1,000 UNIT (25MCG) TABLET PO SCH (08:55)
[2020-12-05] MEDS: DilTIAZem CD (24hr) 240 MG CAP.ER.24H PO SCH (08:55)
[2020-12-05] MEDS: cefTRIAXone 1,000 MG in 0.9 % Sodium Chloride Mini Bag 100 ML IVPB SCH (08:56)
[2020-12-05] MEDS: Azithromycin 500 MG in 0.9 % Sodium Chloride 250 ML IVPB SCH (10:17)
== END 2020-12-05 11:35 | disposition home or self-care (01) | DRG 871 ==
LOC: 3BNU 20:31 → EMEROOARM 20:31 → SUATTDRO 23:46 → 3BNU 12-04 00:37
PROVIDERS: ADMIT Student in an Organized Health Care Education/Training Program; ATTEND Internal Medicine

== ENCOUNTER 2021-05-24 16:50 | Observation (INO) ==
[2021-05-24] MEDS ORDERED: Ondansetron 4 MG/2 ML VIAL IVP ONE ×2 (17:35→19:18)
[2021-05-24] MEDS ORDERED: *HR* FentaNYL (PF) 100 MCG/2 ML VIAL IVP ONE ×3 (17:35→18:34)
[2021-05-24] MEDS ORDERED: Tdap (Boostrix) Vaccine 0.5 ML SYRINGE IM ONE (17:58)
[2021-05-24] MEDS ORDERED: *HR* HYDROcodone/Acet 5/325 mg TABLET PO ONE (18:59)
[2021-05-24] MEDS ORDERED: *HR* Promethazine 25 MG/ML VIAL IM PRN (20:47)
[2021-05-24] MEDS ORDERED: Naloxone 0.4 MG/ML INJ IVP PRN (20:47)
[2021-05-24] MEDS ORDERED: Acetaminophen 325 MG TABLET PO PRN (20:47)
[2021-05-24] MEDS ORDERED: Melatonin 3 MG TABLET PO PRN (20:47)
[2021-05-24] MEDS ORDERED: traZODone 50 MG TABLET PO PRN (21:10)
[2021-05-24 21:13] LABS: Basophils # 0.1 K/mcL (0.0-0.2); Basophils % 0.4 %; Eosinophils % 0.1 %; Hemoglobin 13.1 g/dL (11.5-15.4); Immature Granulocytes % 0.5 % (0-4); Lymphocytes # 0.8 K/mcL (0.6-4.6); Lymphocytes % 4.6 %; Mean Corpuscular HGB Conc 33.6 g/dL (31.6-35.5); Mean Corpuscular Volume 89.4 fL (83.0-100.0); Mean Platelet Volume 10.9 fL (9.4-12.4); Monocytes # 1.1 K/mcL (0.0-1.3); Monocytes % 6.6 %; Neutrophils # 14.7 K/mcL (1.6-8.9); Platelet Count 226 K/mcL (140-400); Red Blood Count 4.36 M/mcL (3.82-4.97); Red Cell Distribution Width 12.2 % (11.5-14.5); Segmented Neutrophils % 87.8 %; White Blood Count 16.7 K/mcL (4.3-11.1)
[2021-05-24 21:18] LABS: INR 1.1; Prothrombin Time 11.8 Seconds (9.4-12.1)
[2021-05-24 21:34] LABS: BUN/Creatinine Ratio 26 (6-26); Blood Urea Nitrogen 22 mg/dL (8-23); Calcium 9.6 mg/dL (8.6-10.3); Carbon Dioxide 24 mEq/L (23-29); Chloride 104 mEq/L (98-107); Glucose 119 mg/dL (70-105); Osmolality,Calculated 288 (280-300); Potassium 4.2 mEq/L (3.5-5.1); Sodium 137 mEq/L (136-145); eGFR For African Americans > 60 (> 60); eGFR For Non-African Americans > 60 (> 60)
[2021-05-24 21:47] LABS: Thyroid Stimulating Hormone 1.417 mcIU/mL (0.340-5.600)
[2021-05-24] MEDS: *HR* OxyCODONE Immed Rel 5 MG TABLET PO PRN (22:48)
[2021-05-24 23:10] LABS: Bacteria,Urine Few per hpf (None-Few); Bilirubin,Urine Negative (Negative); Blood,Urine Negative (Negative); Clarity,Urine Clear (Clear); Color,Urine Light-Yellow (Yellow); Glucose,Urine (UA) Normal (Normal); Hyaline Casts,Urine Few per lpf (None Seen); Ketones,Urine 20 mg/dL (Negative); Leukocyte Esterase,Urine Negative (Negative); Mucus,Urine Few per lpf (None-Few); Nitrite,Urine Negative (Negative); Protein,Urine 30 mg/dL (Neg-Trace); RBC,Urine 0-3 per hpf (0-3); Specific Gravity,Urine 1.014 (1.010-1.025); Squamous Epithelial Cell,Urine Few per hpf (None-Few); Urobilinogen,Urine Normal (Normal)
[2021-05-25] MEDS: *HR* Enoxaparin 40 MG/0.4 ML SYRINGE SQ SCH (07:11)
[2021-05-25] MEDS: Multivit/Ca/Min/Fe/FA 1 TAB TABLET PO SCH (07:50)
[2021-05-25] MEDS: Cholecalciferol (D-3) 1,000 UNIT (25MCG) TABLET PO SCH (07:51)
[2021-05-25] MEDS: DilTIAZem CD (24hr) 240 MG CAP.ER.24H PO SCH ×2 (07:51→08:00)
[2021-05-25] MEDS: *HR* HYDROcodone/Acet 5/325 mg TABLET PO PRN ×2 (08:05→16:14)
[2021-05-25] MEDS ORDERED: lisinopriL 20 MG TABLET PO SCH (09:00)
[2021-05-25] MEDS: *HR* OxyCODONE Immed Rel 5 MG TABLET PO PRN (21:39)
[2021-05-25] MEDS ORDERED: DilTIAZem CD (24hr) 240 MG CAP.ER.24H PO SCH (21:45)
[2021-05-25] MEDS ORDERED: cloNIDine HCL 0.1 MG TABLET PO SCH (22:15)
[2021-05-26] MEDS: *HR* Enoxaparin 40 MG/0.4 ML SYRINGE SQ SCH (06:07)
[2021-05-26] MEDS: Multivit/Ca/Min/Fe/FA 1 TAB TABLET PO SCH (09:18)
[2021-05-26] MEDS: Cholecalciferol (D-3) 1,000 UNIT (25MCG) TABLET PO SCH (09:18)
[2021-05-26 10:43] VITALS: BP 126/78; PULSE 84; TEMP 97.9; O2SAT 96
[2021-05-26] MEDS ORDERED: lisinopriL 20 MG TABLET PO SCH (21:00)
== END 2021-05-26 12:21 | disposition home or self-care (01) ==
LOC: EMEROOARM 16:50 → 4WAOSI 16:50
PROVIDERS: ADMIT Internal Medicine; ATTEND Internal Medicine